=== PATIENT | male | born 1995 ===

== ENCOUNTER 2016-11-26 17:16 | Emergency (ER) | payer OTHER ==
[2016-11-26 19:08] VITALS: BP 120/73
--- NOTE | 2016-11-26 19:39 | UC ---
Throat Pain/Nasal Jonas HPI - HPI Summary HPI Summary: PATIENT PRESENTS TO WITH CC OF SORE THROAT, NASAL CONGESTION AND SINUS PRESSURE X 3 WEEKS. HE STATES HE HAS BEEN COUGHING UP GREEN FOUL MUCOUS. HE WOULD LIKE AN ANTIBIOTIC HE HAS HAD THIS BEFORE. ENDORSES MAGANA, CHILLS AND BODY ACHES. DENIES URINARY SXS, BACK PAIN, CONSTIPATION, DIARRHEA OR N/V. PATIENT HAS A HISTORY OF SINUSITIS. - History of Current Complaint Stated Complaint: FEVER/SORE THROAT/STOMACH ACHE Time Seen by Provider: 11/26/16 19:09 Hx Obtained From: Patient Onset/Duration: Gradual Onset Severity: Moderate Pain Intensity: 5 Pain Scale Used: 0-10 Numeric Cough: Productive Associated Signs & Symptoms: Positive: Hoarseness, Sinus Discomfort, Nasal Discharge Related History: Seasonal Allergies - Epiglottits Risk Factors Epiglottis Risk Factors: Negative - Allergies/Home Medications Allergies/Adverse Reactions: Allergies Allergy/AdvReac Type Severity Reaction Status Date / Time Albuterol Allergy See Comment Verified 11/26/16 19:08 Home Medications: Home Medications Amoxicillin CAP* [-Amoxicillin 250 MG CAP*] 250 mg PO BID PRN 11/26/16 [History Confirmed 11/26/16] Ibuprofen TAB* [Advil TAB*] 400 mg PO ONCE PRN 11/26/16 [History Confirmed 11/26] Multivitamins/Minerals TAB* [Thera M Plus TAB*] 1 tab PO DAILY 11/26/16 [ History Confirmed 11/26/16] PMH/Surg Hx/FS Hx/Imm Hx Previously Healthy: Yes - Surgical History Surgical History: Yes Surgery Procedure, Year, and Place: appy age 14 yrs - Family History Known Family History: Positive: Unknown - Social History Occupation: Employed Full-time Lives: With Family Alcohol Use: Rare Substance Use Type: None Smoking Status (MU): Never Smoked Tobacco Review of Systems Constitutional: Fatigue Skin: Negative ENT: Sore Throat, Nasal Discharge Respiratory: Cough Cardiovascular: Negative Gastrointestinal: Negative Motor: Negative Neurovascular: Negative Neurological: Headache Psychological: Negative All Other Systems Reviewed And Are Negative: Yes Physical Exam Triage Information Reviewed: Yes Appearance: Well-Appearing, No Pain Distress, Well-Nourished Vital Signs: Initial Vital Signs Temp 99.4 F 11/26/16 19:00 Pulse 84 11/26/16 19:00 Resp 18 11/26/16 19:00 BP 120/73 11/26/16 19:00 Pulse Ox 100 11/26/16 19:00 Vital Signs Reviewed: Yes Eye Exam: Normal Eyes: Positive: Conjunctiva Clear ENT Exam: Normal ENT: Positive: Nasal congestion, Nasal drainage Neck exam: Normal Neck: Positive: Supple, No Lymphadenopathy Respiratory Exam: Normal Respiratory: Positive: Chest non-tender, Lungs clear Cardiovascular Exam: Normal Musculoskeletal Exam: Normal Neurological Exam: Normal Neurological: Positive: Alert, Muscle Tone Normal Psychological Exam: Normal Psychological: Positive: Normal Response To Family Skin Exam: Normal Throat Pain/Nasal Course/Dx - Course Course Of Treatment: PATIENT PRESENTS WITH COUGH, SORE THROAT, CONGESTION AND SINUS PRESSURE X 3 WEEKS. DENIES KNOWN FEVERS. HE STATES HE WOULD LIKE AN ANTIBIOTIC IT IS NOT IMPROVING. HE AGREES TO FOLLOW UP AND IS OK WITH PLAN. AUGMENTIN PRESCRIBED FOR SINUS INFECTION. TYLENOL ENCOURAGED. - Differential Dx/Diagnosis Differential Diagnosis/HQI/PQRI: Otitis Media, Pharyngitis, Sinusitis, URI Provider Diagnoses: SINUSITIS Discharge - Discharge Plan Condition: Stable Disposition: HOME Prescriptions: Amoxicillin/Clavulanate TAB* [Augmentin TAB 875*] 875 mg PO BID #14 tab MDD 2 Patient Education Materials: Rhinosinusitis (ED) Additional Instructions: FOLLOW UP WITH PCP. YOU HAVE BEEN GIVEN AUGMENTIN FOR SINUSITIS. IF SYMPTOMS DO NOT IMPROVE OR BECOME WORSE, COME BACK TO UC OR GO TO THE ED TYLENOL NEEDED FOR MUSCLE ACHES, HEADACHES AND TEMP > 100.5.
== END 2016-11-26 19:40 | disposition home or self-care (01) ==
LOC: UCCORT 17:16
DX: J32.9 Chronic sinusitis, unspecified (principal)
CPT/HCPCS: 87651; 99202; G0463